=== PATIENT | female | born 1960 ===

== ENCOUNTER 2016-04-28 18:54 | Emergency (ER) | payer MEDICAID, OTHER ==
[2016-04-28] MEDS ORDERED: ACETAMINOPHEN 325 MG TABLET ONE (20:58)
== END 2016-04-28 21:03 | disposition home or self-care (01) ==
LOC: ED 18:54
DX: S00.12XA Contusion of left eyelid and periocular area, initial encounter (principal); E11.9 Type 2 diabetes mellitus without complications; E78.5 Hyperlipidemia, unspecified; W01.0XXA Fall on same level from slipping, tripping and stumbling without subsequent striking against object, initial encounter; Y93.K9 Activity, other involving animal care; Y92.008 Other place in unspecified non-institutional (private) residence as the place of occurrence of the external cause
CPT/HCPCS: 99282 ×2; A9270